=== PATIENT | male | born 1965 | race Caucasian/White ===

== ENCOUNTER 2016-11-05 16:55 | Emergency (ER) | payer BC, OTHER ==
[~2016-11-05] VITALS: Ht 170.2 cm; Wt 81.2 kg
[~2016-11-05 16:55] MED LIST: ASPIRIN325 MG ORAL; atorvastatin PO; losartan PO; metoprolol PO
[2016-11-05] MEDS ORDERED: HYDROCHLOROTH12.5 M2 ORAL (17:07)
[2016-11-05] MEDS ORDERED: KLONOPIN2 MG PO (17:07)
[2016-11-05] MEDS ORDERED: PROZAC10 MG ORAL (17:07)
[2016-11-05 17:15] VITALS: BP 138/90
[2016-11-05] MEDS ORDERED: KEFLEX500 MG ORAL (17:19)
[2016-11-05] MEDS ORDERED: VENTOLIN HFA18 GM INH (17:19)
[2016-11-05] MEDS ORDERED: TESSALON PERLE100 MG ORAL (17:19)
--- NOTE | 2016-11-05 17:28 | Emergency Room Report ---
History of Present Illness General Chief Complaint: Eye Problems Source: Patient Present Illness HPI [id number] walk-in [employer] patient with 10 days of dry cough associated with left inner lower eyelid swelling. Denies fever/chills. Denies drainage from eye, excessive tearing, eye pain, itch. Doesnt wear contacts. No sick contacts. Denies smoking, history of asthma. patient didnt take OTC meds because he was worried for potentia interaction with his Prozac. Allergies: Coded Allergies: No Known Allergies (Unverified , 03/03/14) Patient History Past Medical History: psych hx Past Surgical History: none Pertinent Family History: none Social History: Reports: smoking, Denies: alcohol use, drug use Immunizations: UTD Reviewed Nursing Documentation: PMH: Agreed, PSxH: Agreed Nursing Documentation-PMH Hx Cardiac Problems: Yes Hx Hypertension: Yes Hx Cancer: No Hx Gastrointestinal Problems: No Hx Neurological Problems: No Review of Systems All Other Systems: negative except mentioned in HPI Physical Exam Vital Signs Date Time Temp Pulse Resp B/P Pulse Ox O2 Delivery O2 Flow Rate FiO2 11/05/16 16:58 98.4 72 18 138/90 99 Room Air Sp02 EP Interpretation: reviewed, normal General Appearance: normal inspection, well appearing, no apparent distress, alert, GCS 15, non-toxic Head: normocephalic, atraumatic Eyes: bilateral eye EOMI, bilateral eye PERRL, bilateral eye other - Left lower medial aspect of eyelid: Edematous, overlying erythema. No pus drainage from area. ENT: normal ENT inspection, hearing grossly normal, normal voice Neck: normal inspection, full range of motion, supple, no bony tend Respiratory: normal inspection, lungs clear, normal breath sounds, no rhonchi, no respiratory distress, no retraction, no accessory muscle use, no wheezing, speaking full sentences Cardiovascular #1: regular rate, rhythm, no edema Gastrointestinal: normal inspection, normal bowel sounds, non tender, soft, no guarding, no hernia Genitourinary: no CVA tenderness Musculoskeletal: normal inspection, back normal, normal range of motion, Richy' s Sign negative Neurologic: normal inspection, alert, oriented x3, responsive, hand molder meat III-XII nml as tested, motor strength/tone normal, speech normal Psychiatric: normal inspection, judgement/insight normal, mood/affect normal Skin: normal inspection, normal color, no rash Lymphatic: normal inspection Medical Decision Making Diagnostic Impression: Primary Impression: Bronchitis Additional Impression: Periorbital cellulitis of left eye ER Course Cough - No wheezing, rhonchi. - VSS. Afebrile. - Likely bronchitis. No systemic symptoms. No rhonchi. Doesnt warrant CXR or Abx at this time. - Will tx with albuterol, tessalon Left eye periorbital cellulitis - EOMI intact - No fever, headache or systemic symptoms - Keflex (no interaction with Prozac) - Warm compress PMD followup Last Vital Signs Date Time Temp Pulse Resp B/P Pulse Ox O2 Delivery O2 Flow Rate FiO2 11/05/16 17:15 98.4 81 18 138/90 99 Room Air Status: improved Disposition: HOME, SELF-CARE Condition: Improved Scripts Benzonatate* (TESSALON PERLE*) 100 Mg Capsule 100 MG ORAL THREE TIMES A DAY for 7 Days, #30 PERLE Prov: CLIFF WAY M.D. 11/05/16 Albuterol Sulfate (VENTOLIN HFA) 18 Gm Hfa.aer.ad 1 PUFF INH EVERY 6 HOURS for For Cough, #18 GM 0 Refills Prov: CLIFF WAY M.D. 11/05/16 Cephalexin* (KEFLEX*) 500 Mg Capsule 500 MG ORAL Q6H for 7 Days, #28 CAP 0 Refills Prov: CLIFF WAY M.D. 11/05/16 Referrals: [employer] [facility],REFERRIN (PCP) Patient Instructions: Preseptal Cellulitis, Adult, Acute Bronchitis, Easy-to- Read Additional Instructions: Cough - Use albuterol inhaler during the day up to 3x a day for cough. - Also take tessalon for cough - Drink tea with honey at night to suppress cough Eyelid swelling - Take ALL of the keflex antibiotic for infection of left eyelid - Apply warm compress up to 3x a day to area of swelling Follow up with your primary doctor in 5-[address] M.D. November 05, 2016 17:28
[2016-11-05 17:49] VITALS: BP 138/90
== END 2016-11-05 17:51 | disposition home or self-care (01) ==
LOC: EMR 17:14
DX: J20.9 Acute bronchitis, unspecified (principal); L03.213 Periorbital cellulitis; F17.200 Nicotine dependence, unspecified, uncomplicated; I10 Essential (primary) hypertension
CPT/HCPCS: 99284

== ENCOUNTER 2017-10-28 17:47 | Inpatient (IN) | payer MEDICAID, OTHER ==
[~2017-10-28] VITALS: Ht 170.2 cm; Wt 93.0 kg
[~2017-10-28 17:47] MED LIST changes: +HYDROCHLOROTH12.5 M2 ORAL; +KEFLEX500 MG ORAL; +KLONOPIN2 MG PO; +PROZAC10 MG ORAL; +TESSALON PERLE100 MG ORAL; +VENTOLIN HFA18 GM INH
[2017-10-28 18:12] VITALS: BP 162/104
[2017-10-28] MEDS ORDERED: Sodium Chloride 500ML 500 ML IV ONE (18:27)
[2017-10-28] MEDS ORDERED: LORazepam Inj 2mg/ml 1ml IV ONE (18:30)
--- NOTE | 2017-10-28 18:40 | Emergency Room Report ---
History of Present Illness General Chief Complaint: Hypertension Source: Patient Present Illness HPI Patient present with complaints of dizziness Hypertension Patient has some develop mental delay including, anxiety disorder Patient's mom reports that they have seen a neurologist recently who has requested an MRI Patient is on Xanax and other blood pressure medicines such as lisinopril He has been more confused recently and has not been taking his medication There was no reports of vomiting or diarrhea No reports of obvious fever Patient himself is verbal however tremulous and anxious Allergies: Coded Allergies: No Known Allergies (Unverified , 03/03/14) Patient History Limited by: medical condition Past Medical History: see triage record Pertinent Family History: unable to obtain Reviewed Nursing Documentation: PMH: Agreed; PSxH: Agreed Nursing Documentation-PMH Hx Cardiac Problems: Yes Hx Hypertension: Yes Hx Cancer: No Hx Gastrointestinal Problems: No Hx Neurological Problems: No Review of Systems All Other Systems: negative except mentioned in HPI Physical Exam Vital Signs Date Time Temp Pulse Resp B/P (MAP) Pulse Ox O2 Delivery O2 Flow Rate FiO2 10/28/17 17:59 98.2 110 18 193/107 98 Room Air 98.2 Sp02 EP Interpretation: reviewed, normal General Appearance: mild distress - Appears tremulous Head: normocephalic, atraumatic Eyes: bilateral eye PERRL, bilateral eye EOMI ENT: hearing grossly normal, normal pharynx, TMs + canals normal, uvula midline Neck: full range of motion, supple, no meningismus, no bony tend Respiratory: lungs clear, normal breath sounds, no rhonchi, no respiratory distress, no retraction, no accessory muscle use Cardiovascular #1: normal peripheral pulses, regular rate, rhythm, no edema, no gallop, no JVD, no murmur Gastrointestinal: normal bowel sounds, non tender, soft, no mass, no organomegaly, non-distended, no guarding, no hernia, no pulsatile mass, no rebound Genitourinary: no CVA tenderness Musculoskeletal: normal inspection Neurologic: oriented x3, responsive, coping machine operator III-XII nml as tested, motor strength/ tone normal, sensory intact Psychiatric: mood/affect normal Skin: normal color, no rash, warm/dry, palpation normal Lymphatic: normal inspection, no adenopathy Medical Decision Making Diagnostic Impression: Primary Impression: Hypertensive emergency ER Course Patient is a fairly complex patient with multiple differential to consideration including but not limited to cardiac, intracranial, infectious cardiopulmonary and vascular emergencies Patient's CT head did not show any acute pathology Blood work reveals low CO2 and elevated CK Possible dehydration Patient requiring further inpatient care Speaking to the patient's primary physician psychiatric consultation was also made Patient also has history of microvascular cerebellar disease Labs Test 10/28/17 18:30 White Blood Count 9.9 K/UL (4.8-10.8) Red Blood Count 5.90 M/UL (4.70-6.10) Hemoglobin 18.0 G/DL (14.2-18.0) Hematocrit 50.3 % (42.0-52.0) Mean Corpuscular Volume 85 FL (80-99) Mean Corpuscular Hemoglobin 31.4 PG (27.0-31.0) Mean Corpuscular Hemoglobin Concent 36.8 G/DL (32.0-36.0) Red Cell Distribution Width 10.5 % (11.6-14.8) Platelet Count 197 K/UL (150-450) Mean Platelet Volume 5.8 FL (6.5-10.1) Neutrophils (%) (Auto) 65.8 % (45.0-75.0) Lymphocytes (%) (Auto) 26.8 % (20.0-45.0) Monocytes (%) (Auto) 5.6 % (1.0-10.0) Eosinophils (%) (Auto) 0.3 % (0.0-3.0) Basophils (%) (Auto) 1.5 % (0.0-2.0) Sodium Level 136 MMOL/L (136-145) Potassium Level 3.9 MMOL/L (3.5-5.1) Chloride Level 101 MMOL/L (98-107) Carbon Dioxide Level 17 MMOL/L (21-32) Anion Gap 19 mmol/L (5-15) Blood Urea Nitrogen 14 mg/dL (7-18) Creatinine 0.7 MG/DL (0.55-1.30) Estimat Glomerular Filtration Rate > 60 mL/min (>60) Glucose Level 118 MG/DL (74-106) Calcium Level 10.2 MG/DL (8.5-10.1) Total Bilirubin 1.0 MG/DL (0.2-1.0) Aspartate Amino Transf (AST/SGOT) 36 U/L (15-37) Alanine Aminotransferase (ALT/SGPT) 29 U/L (12-78) Alkaline Phosphatase 82 U/L (46-116) Total Creatine Kinase 398 U/L (26-308) Creatine Kinase MB 4.2 NG/ML (0.0-3.6) Creatine Kinase MB Relative Index 1.0 Troponin I 0.000 ng/mL (0.000-0.056) Total Protein 9.1 G/DL (6.4-8.2) Albumin 4.8 G/DL (3.4-5.0) Globulin 4.3 g/dL Albumin/Globulin Ratio 1.1 (1.0-2.7) Lipase 200 U/L (73-393) EKG Diagnostic Results Rate: normal Rhythm: NSR ST Segments: no acute changes Rhythm Strip Diag. Results EP Interpretation: yes Rate: 77 Rhythm: NSR, no PVC's, no ectopy Chest X-Ray Diagnostic Results Chest X-Ray Diagnostic Results : Chest X-Ray Ordered: Yes # of Views/Limited/Complete: 1 View Indication: Chest Pain EP Interpretation: Yes Interpretation: no consolidation, no effusion, no pneumothorax Impression: No acute disease Electronically Signed by: David García DO CT/MRI/US Diagnostic Results CT/MRI/US Diagnostic Results : Impression CT head no acute disease Last Vital Signs Date Time Temp Pulse Resp B/P (MAP) Pulse Ox O2 Delivery O2 Flow Rate FiO2 10/28/17 18:12 111 22 162/104 100 Room Air 10/28/17 17:59 98.2 98.2 Status: improved Disposition: ADMITTED INPATIENT Condition: Serious David García DO October 28, 2017 18:40
[2017-10-28] MEDS ORDERED: XANAX0.5 MG ORAL (18:42)
[2017-10-28] MEDS ORDERED: PRAVASTATIN SOD20 M1 ORAL (18:42)
[2017-10-28] MEDS ORDERED: LISINOPRIL30 MG ORAL (18:42)
[2017-10-28] MEDS ORDERED: BUSPIRONE HCL7.5 MG ORAL (18:42)
[2017-10-28] MEDS ORDERED: PROZAC20 MG ORAL (18:42)
[2017-10-28 19:22] LABS: ANION GAP 19 mmol/L (5-15); BLOOD UREA NITROGEN 14 mg/dL (7-18); CALCIUM 10.2 MG/DL (8.5-10.1); CARBON DIOXIDE 17 MMOL/L (21-32); CHLORIDE 101 MMOL/L (98-107); CREATININE 0.7 MG/DL (0.55-1.30); POTASSIUM 3.9 MMOL/L (3.5-5.1); SODIUM 136 MMOL/L (136-145)
[2017-10-28 19:29] LABS: HEMATOCRIT 50.3 % (42.0-52.0); LYMPHOCYTES % (AUTO) 26.8 % (20.0-45.0); MEAN CORPUSCULAR VOLUME 85 FL (80-99); MONOCYTES % (AUTO) 5.6 % (1.0-10.0); NEUTROPHILS % (AUTO) 65.8 % (45.0-75.0); PLATELET COUNT 197 K/UL (150-450); RED CELL DISTRIBUTION WIDTH 10.5 % (11.6-14.8); WHITE BLOOD COUNT 9.9 K/UL (4.8-10.8)
[2017-10-28 19:30] LABS: BASOPHILS % (AUTO) 1.5 % (0.0-2.0); EOSINOPHILS % (AUTO) 0.3 % (0.0-3.0)
[2017-10-28 19:36] LABS: ALANINE AMINOTRANSFERASE 29 U/L (12-78); ALBUMIN 4.8 G/DL (3.4-5.0); ALBUMIN/GLOBULIN RATIO 1.1 (1.0-2.7); ALKALINE PHOSPHATASE 82 U/L (46-116); ASPARTATE AMINO TRANSFERASE 36 U/L (15-37); CKMB 4.2 NG/ML (0.0-3.6); CREATINE KINASE 398 U/L (26-308)
[2017-10-28] MEDS ORDERED: LISINOPRIL20 MG ORAL (20:19)
[2017-10-28] MEDS ORDERED: ASPIRIN81 MG ORAL (20:23)
[2017-10-28] MEDS ORDERED: ALPRAZOLAM1 MG ORAL (20:23)
[2017-10-28] MEDS ORDERED: CENTRUM SILVER1 EAC4 PO (20:23)
[2017-10-28 20:25] VITALS: BP 131/77
[2017-10-28 21:06] VITALS: BP 129/75
[2017-10-28] MEDS: Heparin 5000 units/ml inj SUBQ SCH (22:36)
[2017-10-29 00:35] VITALS: BP 177/106
[2017-10-29] MEDS: LORazepam 1mg tab ORAL PRN ×3 (00:59→16:52)
[2017-10-29 04:00] VITALS: BP 138/84
[2017-10-29] MEDS: Heparin 5000 units/ml inj SUBQ SCH ×3 (05:28→20:59)
[2017-10-29 08:00] VITALS: BP 152/93
[2017-10-29] MEDS: Docusate 100mg cap ORAL SCH ×2 (08:48→20:57)
[2017-10-29] MEDS ORDERED: Lisinopril 20mg tab ORAL SCH ×2 (09:00→18:00)
[2017-10-29 09:03] LABS: ANION GAP 11 mmol/L (5-15); BLOOD UREA NITROGEN 12 mg/dL (7-18); CALCIUM 9.6 MG/DL (8.5-10.1); CARBON DIOXIDE 24 MMOL/L (21-32); CHLORIDE 101 MMOL/L (98-107); CREATININE 0.8 MG/DL (0.55-1.30); POTASSIUM 4.3 MMOL/L (3.5-5.1); SODIUM 136 MMOL/L (136-145)
[2017-10-29 09:04] LABS: BASOPHILS % (AUTO) 1.3 % (0.0-2.0); EOSINOPHILS % (AUTO) 0.7 % (0.0-3.0); HEMATOCRIT 46.9 % (42.0-52.0); HEMOGLOBIN 17.1 G/DL (14.2-18.0); LYMPHOCYTES % (AUTO) 30.9 % (20.0-45.0); MEAN CORPUSCULAR VOLUME 86 FL (80-99); MONOCYTES % (AUTO) 5.7 % (1.0-10.0); NEUTROPHILS % (AUTO) 61.3 % (45.0-75.0); PLATELET COUNT 312 K/UL (150-450); RED BLOOD COUNT 5.43 M/UL (4.70-6.10); RED CELL DISTRIBUTION WIDTH 10.7 % (11.6-14.8); WHITE BLOOD COUNT 6.6 K/UL (4.8-10.8)
--- NOTE | 2017-10-29 11:38 | Cardiology Report ---
APPROVED REPORT EKG Measurement Heart [id number] Normal sinus rhythm Normal ECG
[2017-10-29 12:00] VITALS: BP 136/90
--- NOTE | 2017-10-29 14:00 | History and Physical Report ---
DATE OF ADMISSION: 10/28/2017 REASON FOR ADMISSION: 1. Hypertensive emergency. 2. Anxiety. HISTORY OF PRESENT ILLNESS: The patient is a pleasant 52-year-old gentleman, who lives at home with his parents. He has some developmental delay including anxiety disorder and is followed on an outpatient basis by his psychiatrist, seems that he had slightly decompensated and became very anxious and his blood pressure had spiked. He was admitted overnight for management and adjustments of his antihypertensive medications. His blood pressure this morning is better. He is feeling more relaxed and Psychiatry has been called. ALLERGIES: No known drug allergies. PAST MEDICAL HISTORY: 1. Hypertension. 2. Anxiety disorder. 3. Developmental delay. FAMILY HISTORY: Hypertension. SURGICAL HISTORY: Noncontributory. REVIEW OF SYSTEMS: NEUROLOGIC: The patient denies headache, change in vision, syncope, or presyncopal episodes. CARDIOVASCULAR: No current chest pain, palpitations, or angina. PULMONARY: No difficulty breathing or productive cough sputum. GASTROINTESTINAL/GENITOURINARY: No changes in urinary or bowel habits. No nausea, vomiting, or diarrhea. ENDOCRINOLOGY: No night sweats, fevers, or chills. MUSCULOSKELETAL: The patient feeling weak, tired, and fatigue. LABORATORY DATA: Laboratories dated October 29, 2017, white cell count 6.6, hemoglobin 17.1, and platelet count 312. Sodium 136, potassium 4.3, BUN 12, creatinine 0.8, and calcium 9.6. PHYSICAL EXAMINATION: VITAL SIGNS: Blood pressure 152/93, temperature 97.2, pulse 72, and 99% oxygen on room air. GENERAL: The patient awake, mildly anxious, not otherwise in any distress. HEENT: Extraocular muscles intact. No lymphadenopathy noted. CARDIOVASCULAR: S1, S2. No rubs or gallops. PULMONARY: Clear to auscultation bilaterally. No rales, rhonchi, or wheezes. ABDOMINAL EXAM: Nondistended, nontender with fair bowel sounds in all four quadrants. EXTREMITIES: No edema noted. ASSESSMENT AND PLAN: 1. Hypertensive urgency has resolved. At this time, we will increase lisinopril to 20 mg b.i.d. 2. Developmental delay and anxiety disorder. Psychiatry has been consulted. Appreciate their assistance. Once cleared by Psychiatry, plan is to be discharge tomorrow home to his parents. 3. DVT prophylaxis with heparin subcutaneous. Franky Arias MD DR: ANNABELLA JOB#: [id number] CC:
[2017-10-29 16:00] VITALS: BP 144/81
[2017-10-29] MEDS ORDERED: BusPIRone 5mg Tab ORAL SCH (19:00)
[2017-10-29 20:00] VITALS: BP 139/76
[2017-10-29] MEDS: BusPIRone 5mg Tab ORAL SCH (20:57)
[2017-10-30] VITALS: BP 165/100
[2017-10-30 04:00] VITALS: BP 166/91
[2017-10-30] MEDS: Heparin 5000 units/ml inj SUBQ SCH (06:23)
[2017-10-30 08:00] VITALS: BP 146/92
[2017-10-30] MEDS ORDERED: Lisinopril 20mg tab ORAL SCH (09:00)
--- NOTE | 2017-10-30 09:01 | Nephrology Progress Note ---
Subjective Allergies: Coded Allergies: No Known Allergies (Unverified , 03/03/14) Subjective Will transfer care to Dr Teodoro Stringer, patient known to him and he is his etablished PCP. Discussed with family and they agree and would prefer continuity of care Objective Last 24 Hour Vital Signs Date Time Temp Pulse Resp B/P (MAP) Pulse Ox O2 Delivery O2 Flow Rate FiO2 10/30/17 06:21 166/91 10/30/17 04:00 98.9 100 22 166/91 97 Room Air 98.9 10/30/17 04:00 83 10/30/17 00:23 60 10/30/17 00:00 98.3 89 18 165/100 98 Room Air 98.3 10/29/17 23:38 165/100 10/29/17 20:35 67 10/29/17 20:00 97.9 70 20 139/76 97 Room Air 97.9 10/29/17 18:20 144/81 10/29/17 16:00 98.8 75 18 144/81 97 Room Air 98.8 10/29/17 16:00 73 10/29/17 12:00 97.0 74 18 136/90 97 Room Air 97.0 10/29/17 12:00 84 Intake and Output 10/29/17 10/30/17 19:00 07:00 Intake Total 762 ml Output Total 775 ml Balance 762 ml -775 ml Intake Oral 600 ml IV Total 162 ml Output Urine Total 775 ml # Voids 2 # Bowel Movements 1 Height (Feet): 5 Height (Inches): 7.00 Weight (Pounds): 205 Franky Arias M.D. October 30, 2017 09:00
[2017-10-30] MEDS: BusPIRone 5mg Tab ORAL SCH (09:18)
[2017-10-30] MEDS: Docusate 100mg cap ORAL SCH (09:19)
[2017-10-30] MEDS: LORazepam 1mg tab ORAL PRN (09:50)
[2017-10-30 09:55] LABS: BASOPHILS % (AUTO) 1.1 % (0.0-2.0); EOSINOPHILS % (AUTO) 0.3 % (0.0-3.0); HEMATOCRIT 49.4 % (42.0-52.0); LYMPHOCYTES % (AUTO) 26.2 % (20.0-45.0); MEAN CORPUSCULAR VOLUME 87 FL (80-99); MONOCYTES % (AUTO) 4.9 % (1.0-10.0); NEUTROPHILS % (AUTO) 67.5 % (45.0-75.0); PLATELET COUNT 315 K/UL (150-450); RED BLOOD COUNT 5.65 M/UL (4.70-6.10); RED CELL DISTRIBUTION WIDTH 10.5 % (11.6-14.8); WHITE BLOOD COUNT 6.6 K/UL (4.8-10.8)
[2017-10-30 10:05] LABS: HEMOGLOBIN 18.5 G/DL (14.2-18.0)
[2017-10-30 10:21] LABS: ALANINE AMINOTRANSFERASE 31 U/L (12-78); ALBUMIN 4.3 G/DL (3.4-5.0); ALKALINE PHOSPHATASE 79 U/L (46-116); ANION GAP 16 mmol/L (5-15); ASPARTATE AMINO TRANSFERASE 20 U/L (15-37); BILIRUBIN,TOTAL 0.8 MG/DL (0.2-1.0); BLOOD UREA NITROGEN 12 mg/dL (7-18); CALCIUM 9.4 MG/DL (8.5-10.1); CARBON DIOXIDE 19 MMOL/L (21-32); CHLORIDE 102 MMOL/L (98-107); CREATININE 0.8 MG/DL (0.55-1.30); POTASSIUM 3.6 MMOL/L (3.5-5.1); SODIUM 137 MMOL/L (136-145)
[2017-10-30 12:00] VITALS: BP 130/81
--- NOTE | 2017-10-30 12:41 | Discharge Instructions ---
Discharge Instructions Discharge Instructions Follow up with: Follow up with his PCP this week Dr Teodoro Stringer Diet: 2 GM sodium (low sodium) Resume Normal Activity?: Yes Activity: resume normal activities Pneumonia Vaccine: vaccine not indicated Influenza Vaccine (Mar to Aug): vaccine not indicated For Congestive Heart Failure Reminder Report to your physician any weight gain of 5 pounds or more in one week. Franky Arias M.D. October 30, 2017 12:41
--- NOTE | 2017-10-30 17:15 | Discharge Summary ---
DATE OF ADMISSION: 10/28/2017 DATE OF DISCHARGE: 10/30/2017 REASON FOR ADMISSION: 1. Hypertensive urgency. 2. Anxiety. HOSPITAL COURSE: The patient is a pleasant 52-year-old mentally delayed patient who is at home with his family. He was brought to the emergency room for evaluation of onset of difficult to control hypertension, he had been controlled relatively well until two days prior. During his hospitalization, the patient did well. Psychiatry was consulted. Medications were continued. The patient denies any harm to himself or others. He is feeling otherwise well. His lisinopril was increased and his blood pressure dramatically improved. The patient has good supportive care with his mother at bedside and she is here while awaiting his discharge. DISPOSITION: Condition at time of discharge stable. DISCHARGE MEDICATIONS: 1. The patient can continue all of his home medications. 2. Only change is increasing lisinopril to 40 mg b.i.d. FOLLOWUP POSTDISCHARGE: The patient is to follow up with his primary care physician, Dr. Teodoro Stringer this week. They have the number and he is to continue continuity care and see him later this week. Franky Arias MD DR: Nuno JOB#: [id number] CC: DESIREE
--- NOTE | 2017-10-30 23:25 | Consultation ---
History of Present Illness General Date patient seen: October 30, 2017 Chief Complaint: Hypertension Present Illness HPI The patient is a pleasant 52-year-old gentleman, who lives at home with his parents. He has some developmental delay including anxiety disorder and is followed on an outpatient basis by his psychiatrist, seems that he had slightly decompensated and became very anxious and his blood pressure had spiked. the pt denied suicidal thoughts. the parents were in the room. they were very anxious and overbearing. the pt has a psychiatrist and they asked me to not change any of his meds Allergies: Coded Allergies: No Known Allergies (Unverified , 03/03/14) Medication History Scheduled Aspirin* (Aspirin*), 81 MG ORAL DAILY, (Reported) Buspirone Hcl* (Buspirone Hcl*), 7.5 MG ORAL TWICE A DAY, (Reported) Fluoxetine Hcl* (Prozac*), 20 MG ORAL BID, (Reported) Mu-Vits-Min Th/Lycopene/Lutein (Centrum Silver Tablet), 1 EACH PO DAILY, ( Reported) Pravastatin Sod* (Pravastatin Sod*), 20 MG ORAL BEDTIME, (Reported) Scheduled PRN Alprazolam* (Xanax*), 0.5 MG ORAL BID PRN for For Anxiety, (Reported) Discontinued Medications Albuterol Sulfate (Ventolin Hfa), 1 PUFF INH EVERY 6 HOURS Discontinued Reason: Pt stopped taking med Aspirin* (Aspirin*), 325 MG ORAL DAILY, (Reported) Discontinued Reason: Pt stopped taking med Benzonatate* (Tessalon Perle*), 100 MG ORAL THREE TIMES A DAY Discontinued Reason: Therapy completed Cephalexin* (Keflex*), 500 MG ORAL Q6H Discontinued Reason: Therapy completed Clonazepam (Klonopin), 2 MG PO, (Reported) Discontinued Reason: Pt stopped taking med Fluoxetine Hcl* (Prozac*), 10 MG ORAL DAILY, (Reported) Discontinued Reason: Medication dose changed Hydrochlorothiazide* (Hydrochlorothiazide*), 12.5 MG ORAL DAILY, (Reported) Discontinued Reason: Pt stopped taking med Lisinopril (Lisinopril*), 20 MG ORAL DAILY, (Reported) Discontinued Reason: Medication dose changed [atorvastatin], Unknown Dose PO DAILY, (Reported) Discontinued Reason: Pt stopped taking med [losartan], Unknown Dose PO DAILY, (Reported) Discontinued Reason: Pt stopped taking med [metoprolol], Unknown Dose PO DAILY, (Reported) Discontinued Reason: Pt stopped taking med Patient History Limited by: medical condition History Provided By: Patient, Medical Record, PMD Healthcare decision maker moi Esquivel in nursing notes Resuscitation status Full Code Advanced Directive on File Past Medical/Surgical History Past Medical/Surgical History: (1) Bronchitis (2) Periorbital cellulitis of left eye (3) Hypertension (4) Hypertensive emergency Review of Systems Psychiatric: Reports: prior hx, anxiety, depressed feelings, emotional problems Physical Exam General Appearance: WD/WN, no apparent distress, alert Neurologic: oriented x 3, responsive, depressed affect Last 24 Hour Vital Signs Date Time Temp Pulse Resp B/P (MAP) Pulse Ox O2 Delivery O2 Flow Rate FiO2 10/30/17 12:00 97.7 69 20 130/81 97 Room Air 97.7 10/30/17 12:00 72 10/30/17 09:18 146/92 10/30/17 08:00 83 10/30/17 08:00 99.2 96 20 146/92 97 Room Air 99.2 10/30/17 06:21 166/91 10/30/17 04:00 98.9 100 22 166/91 97 Room Air 98.9 10/30/17 04:00 83 10/30/17 00:23 60 10/30/17 00:00 98.3 89 18 165/100 98 Room Air 98.3 10/29/17 23:38 165/100 Intake and Output 10/29/17 10/30/17 19:00 07:00 Intake Total 762 ml Output Total 775 ml Balance 762 ml -775 ml Intake Oral 600 ml IV Total 162 ml Output Urine Total 775 ml # Voids 2 # Bowel Movements 1 Laboratory Tests Test 10/30/17 07:30 White Blood Count 6.6 K/UL (4.8-10.8) Red Blood Count 5.65 M/UL (4.70-6.10) Hemoglobin 18.5 G/DL (14.2-18.0) *H Hematocrit 49.4 % (42.0-52.0) Mean Corpuscular Volume 87 FL (80-99) Mean Corpuscular Hemoglobin 32.8 PG (27.0-31.0) H Mean Corpuscular Hemoglobin Concent 37.5 G/DL (32.0-36.0) H Red Cell Distribution Width 10.5 % (11.6-14.8) L Platelet Count 315 K/UL (150-450) Mean Platelet Volume 5.4 FL (6.5-10.1) L Neutrophils (%) (Auto) 67.5 % (45.0-75.0) Lymphocytes (%) (Auto) 26.2 % (20.0-45.0) Monocytes (%) (Auto) 4.9 % (1.0-10.0) Eosinophils (%) (Auto) 0.3 % (0.0-3.0) Basophils (%) (Auto) 1.1 % (0.0-2.0) Sodium Level 137 MMOL/L (136-145) Potassium Level 3.6 MMOL/L (3.5-5.1) Chloride Level 102 MMOL/L (98-107) Carbon Dioxide Level 19 MMOL/L (21-32) L Anion Gap 16 mmol/L (5-15) H Blood Urea Nitrogen 12 mg/dL (7-18) Creatinine 0.8 MG/DL (0.55-1.30) Estimat Glomerular Filtration Rate > 60 mL/min (>60) Glucose Level 170 MG/DL (74-106) H Calcium Level 9.4 MG/DL (8.5-10.1) Total Bilirubin 0.8 MG/DL (0.2-1.0) Aspartate Amino Transf (AST/SGOT) 20 U/L (15-37) Alanine Aminotransferase (ALT/SGPT) 31 U/L (12-78) Alkaline Phosphatase 79 U/L (46-116) Total Protein 8.4 G/DL (6.4-8.2) H Albumin 4.3 G/DL (3.4-5.0) Globulin 4.1 g/dL Albumin/Globulin Ratio 1.0 (1.0-2.7) Height (Feet): 5 Height (Inches): 7.00 Weight (Pounds): 205 Assessment/Plan Status: stable, progressing Assessment/Plan MDD, DD Anxiety d/o the pt is not at imminent dts/dto no med changes Etelvina Smallwood M.D. October 30, 2017 23:25
--- NOTE | 2017-10-31 08:16 | Discharge Summary ---
Discharge Summary Discharge Summary Discharge Summary ADDENDUM DISCHARGE DIAGNOSIS HTN emergency anxiety disorder developmental delay Juan Pablo (Radha)Tricia NP October 31, 2017 08:16
== END 2017-10-30 13:19 | disposition home or self-care (01) | DRG 199 ==
LOC: EMR 18:35 → 2E 19:55 → EDBEDREQ 20:24
DX: I16.0 Hypertensive urgency (principal); F32.9 Major depressive disorder, single episode, unspecified; F41.9 Anxiety disorder, unspecified; R62.50 Unspecified lack of expected normal physiological development in childhood; I16.1 Hypertensive emergency; Z79.82 Long term (current) use of aspirin
CPT/HCPCS: 36415; 70450; 80048; 80053; 82550; 82553; 83690; 84484; 85025; 93005; 99285